=== PATIENT | female | born 1985 | race Caucasian/White ===

== ENCOUNTER 2021-01-16 22:23 | Emergency (ER) ==
[~2021-01-16] VITALS: Ht 172.7 cm; Wt 85.9 kg
== END 2021-01-17 04:23 | disposition left against medical advice (07) ==
LOC: M ED 22:23
DX: Z53.21 Procedure and treatment not carried out due to patient leaving prior to being seen by health care provider (principal)

== ENCOUNTER → 2023-04-03 | Outpatient (CLI) | payer OTHER ==
[2023-04-03 13:40] VITALS: TEMP 97.8
[2023-04-03 15:53] LABS: APPEARANCE, CSF CLEAR (CLEAR); COLOR, CSF COLORLESS (COLORLESS); CSF TUBE# CELL CNT TUBE 1
[2023-04-03 16:11] LABS: CSF TUBE# TP TUBE 1; TOTAL PROTEIN,CSF 52.5 MG/DL (15-45)
[2023-04-03 16:12] LABS: CSF TUBE# GLU TUBE 1
[2023-04-03 16:20] VITALS: BP 126/73; O2SAT 100
== END ==
LOC: M IRPRO 13:22 → EDBD 14:30
PROVIDERS: ATTEND Psychiatry & Neurology Neurology
DX: G37.9 Demyelinating disease of central nervous system, unspecified (principal)